=== PATIENT | female | born 1945 | race Caucasian/White ===

== ENCOUNTER 2019-06-27 08:16 | Emergency (ER) | payer MEDICARE ==
--- OUTSIDE RECORDS SUMMARY | 2019-06-27 08:24 | XMS REPORT | Continuity of Care Document ---
:1945 External Reference #:[id number] Author Name Josh Hathaway MD Address [address] [place] [id number] Care Team Providers Name Role Phone Nic Bartholomew MD - Allergy Care Team Information Supply Chain Coordinator Maciej Albert MD - Nephrology Care Team Information Supply Chain Coordinator Kristina Jha MD - Obstetrics Care Team Information Supply Chain Coordinator [phone] & Gynecology Problems Active Problems Provider Date Essential hypertension Josh Hathaway MD Onset: 10/04/2014 Mixed hyperlipidemia Josh Hathaway MD Onset: 10/04/2014 Thoracogenic scoliosis Josh Hathaway MD Onset: 10/04/2014 Osteochondropathy Josh Hathaway MD Onset: 01/11/2015 Disorder of bone density and structure, Josh Hathaway MD Onset: 2014 unspecified Disorder of bone Josh Hathaway MD Onset: 05/25/2018 Degenerative joint disease involving multiple Josh Hathaway MD Onset: joints Social History Type Date Description Comments Sex Unknown ETOH Use consumes 2-3 glasses of wine per week Tobacco Use Start: Unknown End: Patient is a former Unknown smoker Recreational Drug Use Denies Drug Use Smoking Status Reviewed: 05/04/67 Patient is a former smoker Exercise Type/Frequency Exercises regularly Aerobics 3x/wk for 1 hour, weights 2-3/wk for 45 minutes Allergies, Adverse Reactions, Alerts Active Allergies Reaction Severity Comments Date Penicillin Moderate Rash 10/04/2014 Medications Active Medications SIG Qnty Indications Ordering Provider Date Celecoxib take 1 capsule by 90caps M54.12 Moreno A 09/14/2018 100mg mouth once daily MD Rivas Capsules If Needed For Arthritis M54.17 M15.0 Potassium Chloride Eloise take 1 tablet by 90tabs R25.2 Josh A Rivas, 04/05/2018 ER mouth once daily 20Meq Tablets ER Proair HFA inhale 2 puffs by 17units Josh Hathaway, 12/14/2017 108(90Base) mouth every 4 to 6 MD mcg/Act Aerosol hours if needed for wheezing or as directed Acetaminophen 1 by mouth three M15.0 Moreno Zoila Hathaway, 10/21/2016 500mg Tablets times a day as MD needed Vitamin D3 1 by mouth every M85.9 Moreno Zoila Hathaway, 01/11/2015 2000Unit Capsules day M41.35 Hydrochlorothiazide take 1 tablet by 90tabs I10 Moreno A 01/11/2015 25mg Tablets mouth once daily MD Rivas for high blood pressure Atorvastatin Calcium take 1 tablet by 90tabs E78.2 Moreno A 01/11/2015 10mg Tablets mouth once daily MD Rivas for Elevation Of Cholesterol In Blood Estradiol/Norethindrone Take 1 tablet by N95.1 Jha, 03/18/2014 Acetate mouth daily for Kristina Duarte MD 0.5-0.1mg Tablets "change of life" signs Alvesco Inhale 1 puff by 493.90 Puma, 05/04/2003 160mcg/Act Aerosol mouth 2 times per MD Nic day for asthma Amlodipine Besylate take 1 tablet by 90tabs I10 Moreno A 05/04/2002 2.5mg Tablets mouth once daily MD Rivas for high blood pressure Zyrtec Allergy 1 by mouth every 995.3 Puma, 05/04/1999 10mg Tablets day as needed MD Nic Mucinex Take 1 tablet by Puma, 05/04/1999 600mg Tablets ER 12HR mouth every 12 MD Nic hours for chest congestion Centrum Silver 1 by mouth every Unknown 05/04/1999 Tablets day Immunizations CPT Code Status Date Vaccine Lot # [id number] Given 02/01/2019 Influenza Vaccine Quadrivalent Preser/Antibiotic Free Im Use U-Pneum Given 06/02/2018 Pneumococcal,Unspecified 24316 Given 01/02/2018 Influenza Vaccine Quadrivalent Preser/Antibiotic Free Im Use 31273 Given 05/15/2017 Prevnar (Pneumonia) 13 Vaccine [id number] Given 02/01/2015 Influenza Virus Split 3 Yrs And Above For Intramuscular Use 36940 Given 10/04/2014 Pneumococcal Vaccine 2Yrs Or Older [id number] 33127 Given 02/01/2014 Influenza Virus Split 3 Yrs And Above For Intramuscular Use 72002 Given 11/01/2008 Tdap-Tetanus, Diphtheria Toxoids/Acellular Pertussis Vaccine 7+ Vital Signs Date Vital Result Comment 06/02/2019 10:20am Heart Rate 68 /min BP Systolic 135 mmHg BP Diastolic 80 mmHg Weight 123.00 lb 11/30/2018 10:58am Body Temperature 98.4 F O2 % BldC Oximetry 98 % Heart Rate 65 /min BP Systolic 125 mmHg BP Diastolic 75 mmHg BMI (Body Mass Index) 21.8 kg/m2 Weight 128.00 lb Height 64.25 inches 5'4.25" Results Test Acquired Date Facility Test Result H/L Range Note Comp Metabolic 05/26/2019 [facility] Sodium 138 mmol/L Normal 135-145 Panel [place], [place] [id number] [phone] Potassium 3.7 mmol/L Normal 3.5-5.0 Chloride 101 mmol/L Normal 101-111 Co2 Carbon Dioxide 30 mmol/L Normal 22-32 Anion Gap 7 mmol/L Normal 2-11 Glucose 92 mg/dL Normal 70-100 Blood Urea Nitrogen 14 mg/dL Normal 6-24 Creatinine 0.64 mg/dL Normal 0.51-0.95 BUN/Creatinine Ratio 21.9 High 8-20 Calcium 9.2 mg/dL Normal 8.6-10.3 Total Protein 6.5 g/dL Normal 6.4-8.9 Albumin 4.2 g/dL Normal 3.2-5.2 Globulin 2.3 g/dL Normal 2-4 Albumin/Globulin Ratio 1.8 Normal 1-3 Total Bilirubin 0.80 mg/dL Normal 0.2-1.0 Alkaline Phosphatase 85 U/L Normal 34-104 Alt 19 U/L Normal 7-52 Ast 21 U/L Normal 13-39 Egfr Non- 90.5 >60 Egfr 109.5 >60 1 Laboratory test 05/26/2019 [facility] Vitamin D 51.6 ng/mL High 20-50 2 [place] [address] Total 25(Oh) [phone] Xray 02/21/2019 [facility] Mammography, Normal [address] Screening, [place] [address] Bilateral [phone] Laboratory test 01/28/2019 [facility] Vitamin D 53.8 ng/mL High 20-50 [address] [place] [address] Total 25(Oh) [phone] Pthi 01/28/2019 [facility] Calcium (PTH 9.2 mg/dL Normal 8.6- 10.3 [place] [address] Intact) [phone] PTH Intact 25.7 pg/mL Normal 12-88 1 Because ethnic data is not always readily available, this report includes an eGFR for both -Americans and non- Americans. The National Kidney Disease Education Program (NKDEP) does not endorse the use of the MDRD equation for patients that are not between the ages of 18 and 70, are , have extremes of body size, muscle mass, or nutritional status, or are non- or non-. According to the National Kidney Foundation, irrespective of diagnosis, the stage of the disease is based on the level of kidney function: Stage Description GFR(mL/min/1.73 m(2)) 1 Kidney damage with normal or decreased GFR 90 2 Kidney damage with mild decrease in GFR 60-89 3 Moderate decrease in GFR 30-59 4 Severe decrease in GFR 15-29 5 Kidney failure <15 (or dialysis) 2 Total 25-Hydroxyvitamin D2 and D3 (25-OH-VitD) <10 ng/mL (severe deficiency) 10-19 ng/mL (mild to moderate deficiency) 20-50 ng/mL (optimum levels) 51-80 ng/mL (increased risk of hypercalciuria) >80 ng/mL (toxicity possible) 3 Total 25-Hydroxyvitamin D2 and D3 (25-OH-VitD) <10 ng/mL (severe deficiency) 10-19 ng/mL (mild to moderate deficiency) 20-50 ng/mL (optimum levels) 51-80 ng/mL (increased risk of hypercalciuria) >80 ng/mL (toxicity possible) Procedures Date Code Description Status 02/21/2019 [id number] Mammogram Completed 02/08/2018 [id number] Mammogram Completed 10/05/2017 [id number] Bone Mineral Density Test Completed 02/03/2017 [id number] Mammogram Completed 01/23/2015 [id number] Mammogram Completed 11/07/2010 [id number] Bone Mineral Density Test Completed 09/23/2009 [id number] Colonoscopy Completed Medical Devices Description No Information Available Encounters Type Date Location Provider Dx Diagnosis Office Visit 06/02/2019 Main Office Josh Hathaway, I10 Essential ( primary) 10:20a hypertension M15.0 Primary generalized (osteo)arthritis E78.2 Mixed hyperlipidemia E67.3 Hypervitaminosis D Assessments Date Code Description Provider 06/02/2019 I10 Essential (primary) hypertension Josh Hathaway MD 06/02/2019 M15.0 Primary generalized (osteo)arthritis Josh Hathaway MD 06/02/2019 E78.2 Mixed hyperlipidemia Josh Hathaway MD 06/02/2019 E67.3 Hypervitaminosis D Josh Hathaway MD Plan of Treatment 06/02/2019 - Josh Hathaway MDI10 Essential (primary) hypertensionComments: Clinically stable. Continue recommended plan of care. Follow up recommendations discussed. Encouraged to continue efforts related to modification of life style.M15.0 Primary generalized (osteo)arthritisComments:Clinically stable. Continue recommended plan of care. Follow up recommendations discussed. Encouraged to continue efforts related to modification of life style. Medications related potential side effects, general precautions, follow up recommendations discussed with patient in detail. Patient verbalized understanding. Lifestyle and dietary modifications advised.E78.2 Mixed [id number] Hypervitaminosis DComments:Improved. Functional Status Functional Condition Comment Date Status CONTACTS Active Glasses Active Mental Status Description No Information Available Referrals Description No Information Available
[2019-06-27 08:27] VITALS: BP 151/69
--- NOTE | 2019-06-27 08:34 | UC ---
Hand/Wrist HPI - HPI Summary HPI Summary: 73 yo female presents with RIGHT wrist injury. She tells me that 2 days ago she tripped over a small box and landed with her hands outstretched. Did not hit her head or have LOC. Was able to get to her feet under her own power. Noticed some right wrist pain. She bought an OTC wrist brace and used this for a day and pain felt much better. This morning her pain has continued to improve, but she noticed some bruising and swelling which concerned her. She denies numbness or tingling. - History Of Current Complaint Chief Complaint: UCUpperExtremity Stated Complaint: WRIST INJURY Time Seen by Provider: 06/27/19 08:33 Hx Obtained From: Patient Onset/Duration: Sudden Onset Severity Initially: Mild Severity Currently: Mild Pain Intensity: 2 Pain Scale Used: 0-10 Numeric - Allergies/Home Medications Allergies/Adverse Reactions: Allergies Allergy/AdvReac Type Severity Reaction Status Date / Time Penicillins Allergy Rash Verified 06/27/19 08:28 Home Medications: Home Medications Acetaminophen [Tylenol] 650 mg PO 09/29/13 [History Confirmed 09/29/13] Amlodipine Besylate [Norvasc] 2.5 mg PO DAILY 09/29/13 [History Confirmed ] Aspirin [Aspir-81] 81 mg PO DAILY 09/29/13 [History Confirmed 09/29/13] Atorvastatin* [Lipitor*] 10 mg PO 1700 09/29/13 [History Confirmed 09/29/13] Cetirizine* [ZyrTEC*] 10 mg PO DAILY 09/29/13 [History Confirmed 09/29/13] Ciclesonide [Alvesco] 80 mcg IN DAILY 09/29/13 [History Confirmed 09/29/13] Guaifenesin [Mucinex] 600 mg PO DAILY 09/29/13 [History Confirmed 09/29/13] Multivit-Min/Ferrous Fumarate [Multivitamin] 1 liq PO DAILY 09/29/13 [History Confirmed 06/27/19] Hydrochlorothiazide TAB* [Hydrodiuril TAB*] 1 % PO 06/27/19 [History] Potassium Chlor TAB* [Potassium Chlor TAB 20 MEQ*] 1 tab PO DAILY 06/27/19 [ History Confirmed 06/27/19] PMH/Surg Hx/FS Hx/Imm Hx Endocrine History: Dyslipidemia Cardiovascular History: Hypertension - Surgical History Surgical History: Yes Surgery Procedure, Year, and Place: csection x2. bowel resection - Family History Known Family History: Positive: Non-Contributory - Social History Occupation: Retired Lives: With Family Alcohol Use: Occasionally Substance Use Type: None Smoking Status (MU): Former Smoker Review of Systems All Other Systems Reviewed And Are Negative: No Constitutional: Positive: Negative Skin: Positive: Negative Respiratory: Positive: Negative Cardiovascular: Positive: Negative Neurovascular: Positive: Negative Musculoskeletal: Positive: Other: - Right wrist injury Neurological/Mental Status: Positive: Negative Psychological: Positive: Negative Physical Exam - Summary Physical Exam Summary: GENERAL: NAD. WDWN. No pain distress. SKIN: No rashes, sores, lesions, or open wounds. CHEST: No accessory muscle use. Breathing comfortably and in no distress. CV: Pulses intact radial and ulnar. Cap refill <2seconds MSK: RIGHT WRIST: Mild edema and ecchymosis overlying the dorsal aspect. FROM. Strength 5/5 including business planning manager strength. No snuffbox tenderness. NEURO: Alert. Sensations intact hand and all fingers. PSYCH: Age appropriate behavior. Triage Information Reviewed: Yes Vital Signs: Initial Vital Signs Temp 98 F 06/27/19 08:25 Pulse 63 06/27/19 08:25 Resp 15 06/27/19 08:25 BP 151/69 06/27/19 08:25 Pulse Ox 100 06/27/19 08:25 Vital Signs Reviewed: Yes Diagnostics - Radiology Wrist XR Radiology Interpretation Completed By: Radiologist Summary of Radiographic Findings: IMPRESSION: NO EVIDENCE FOR FRACTURE. IF THE PATIENT'S SYMPTOMS PERSIST RECOMMEND FOLLOW-UP IMAGING. Hand/Wrist Course/Dx - Course Course Of Treatment: XR as above. Suspect wrist sprain. Advised to RICE and continue using wrist brace for comfort - Differential Dx/Diagnosis Provider Diagnosis: Wrist sprain Discharge ED - Sign-Out/Discharge Documenting (check all that apply): Patient Departure All imaging exams completed and their final reports reviewed: Yes - Discharge Plan Condition: Stable Disposition: HOME Patient Education Materials: Wrist Sprain (ED) Referrals: Josh Hathaway MD [Primary Care Provider] - Additional Instructions: If you develop a fever, shortness of breath, chest pain, new or worsening symptoms - please call your PCP or go to the ED immediately. Use your wrist brace as needed for comfort Rest, Ice, and elevate your wrist to reduce pain and swelling May take tylenol as directed for discomfort - Billing Disposition and Condition Condition: STABLE Disposition: Home
== END 2019-06-27 09:24 | disposition home or self-care (01) ==
LOC: UCEAST 08:16
DX: S63.501A Unspecified sprain of right wrist, initial encounter (principal); I10 Essential (primary) hypertension; E78.5 Hyperlipidemia, unspecified; Z79.899 Other long term (current) drug therapy; Z79.82 Long term (current) use of aspirin; Z88.0 Allergy status to penicillin; Z87.891 Personal history of nicotine dependence; W18.09XA Striking against other object with subsequent fall, initial encounter; Y92.9 Unspecified place or not applicable
CPT/HCPCS: 99211; G0463